=== PATIENT | male | born 1985 | race African-American/Black ===

== ENCOUNTER 2016-09-16 17:51 | Emergency (ER) | payer MEDICAID, OTHER | END 2016-09-16 18:40 | disposition left against medical advice (07) | LOC: ER 18:11 | DX: R51 Headache (principal); Z53.21 Procedure and treatment not carried out due to patient leaving prior to being seen by health care provider ==

== ENCOUNTER 2017-07-14 20:08 | Emergency (ER) | payer MEDICAID ==
[~2017-07-14] VITALS: Ht 190.5 cm; Wt 72.6 kg
[2017-07-14 21:06] VITALS: BP 151/103
[2017-07-14] MEDS ORDERED: cefTRIAXone SOD 1,000 MG VL IM ONE (22:30)
== END 2017-07-14 23:16 | disposition home or self-care (01) ==
LOC: ER 20:08
DX: S01.81XA Laceration without foreign body of other part of head, initial encounter (principal); K02.9 Dental caries, unspecified; X58.XXXA Exposure to other specified factors, initial encounter; Y93.89 Activity, other specified; Y92.89 Other specified places as the place of occurrence of the external cause; Y99.8 Other external cause status
CPT/HCPCS: 12011; 96372; 99283; J0696

== ENCOUNTER 2022-08-26 22:19 | Emergency (ER) | payer MEDICAID ==
[~2022-08-26] VITALS: Ht 185.4 cm; Wt 91.0 kg
[2022-08-27] MEDS ORDERED: KETOROLAC TROMETH 60MG/2ML VIAL IM ONE (01:00)
[2022-08-27] MEDS ORDERED: IBUP-1456 PO (01:00)
[2022-08-27 01:07] VITALS: BP 186/100
== END 2022-08-27 01:43 | disposition home or self-care (01) ==
LOC: ER 22:19
DX: R51.9 Headache, unspecified (principal); H54.61 Unqualified visual loss, right eye, normal vision left eye
CPT/HCPCS: 70450; 70480; 96372; 99285; J1885